=== PATIENT | male | born 1955 | race Caucasian/White ===

== ENCOUNTER 2016-05-14 19:20 | Emergency (ER) | payer MEDICAID ==
[~2016-05-14] VITALS: Ht 185.4 cm; Wt 77.0 kg
[~2016-05-14 19:20] MED LIST: CEPH-376 PO; CREAM FOR RASH; CYCL-259 PO; DIPH25CA61 PO; IBUP-1222 PO; METO25TA35 PO; NAPR500T3 PO; OXYC1TAB9 PO; OXYC5CAP4 PO; SENN1TAB5 PO
[2016-05-14 19:30] VITALS: BP 109/70
[2016-05-14] MEDS ORDERED: DEXAMETHASONE 4 MG TABLET PO ONE (21:00)
[2016-05-14] MEDS ORDERED: KETOROLAC 30 MG/1 ML IM ONE (21:00)
[2016-05-14] MEDS ORDERED: DEXAMETHASONE 4 MG TABLET ONE (21:01)
[2016-05-14] MEDS ORDERED: KETOROLAC 30 MG/1 ML ONE (21:01)
== END 2016-05-14 22:13 | disposition home or self-care (01) ==
LOC: ED 22:00
DX: J44.0 Chronic obstructive pulmonary disease with (acute) lower respiratory infection (principal); J20.8 Acute bronchitis due to other specified organisms; J02.8 Acute pharyngitis due to other specified organisms; F41.1 Generalized anxiety disorder; F17.200 Nicotine dependence, unspecified, uncomplicated
CPT/HCPCS: 71020; 93005; 96372; 99284; J1885

== ENCOUNTER 2016-07-13 23:57 | Emergency (ER) | payer MEDICAID ==
[~2016-07-13] VITALS: Ht 185.4 cm; Wt 71.0 kg
[2016-07-14] MEDS ORDERED: LORazepam 1MG TABLET PO ONE (00:30)
[2016-07-14 01:05] LABS: BLOOD UREA NITROGEN 14 mg/dL (7-18)
[2016-07-14 01:07] LABS: ACETAMINOPHEN < 2 mcg/mL (10-30)
[2016-07-14 03:34] VITALS: BP 119/66
[2016-07-14 04:02] LABS: DAU SCREEN DISCLAIMER
== END 2016-07-14 05:43 | disposition home or self-care (01) ==
LOC: ED 23:59
DX: F32.9 Major depressive disorder, single episode, unspecified (principal); F19.959 Other psychoactive substance use, unspecified with psychoactive substance-induced psychotic disorder, unspecified; F10.229 Alcohol dependence with intoxication, unspecified; F22 Delusional disorders; R45.851 Suicidal ideations
CPT/HCPCS: 36415; 80048; 80307; 80329; 82040; 85025; 99284; G0480

== ENCOUNTER 2016-08-09 11:47 | Observation (INO) | payer MEDICAID ==
[~2016-08-09] VITALS: Ht 185.4 cm; Wt 73.8 kg
[2016-08-09 13:43] LABS: BLOOD UREA NITROGEN 9 mg/dL (7-18)
[2016-08-09 13:47] LABS: ASPARTATE AMINO TRANSFERASE 89 U/L (15-37)
[2016-08-09 13:50] LABS: ACETAMINOPHEN < 2 mcg/mL (10-30)
[2016-08-09] MEDS ORDERED: BISACODYL 10 MG SUPP PR PRN (15:00)
[2016-08-09] MEDS ORDERED: ACETAMINOPHEN 325 MG TABLET PO PRN (15:00)
[2016-08-09] MEDS ORDERED: POLYETHYLENE GLYCOL 17 GM PACKET PO PRN (15:00)
[2016-08-09] MEDS ORDERED: ONDANSETRON ODT 4 MG PO PRN (15:00)
[2016-08-09] MEDS ORDERED: DOCUSATE 100 MG CAPSULE PO PRN (15:00)
[2016-08-09 15:26] LABS: DAU SCREEN DISCLAIMER
[2016-08-09] MEDS: NICOTINE 14MG/24 HR PATCH.TD24 TD SCH (16:30)
[2016-08-09] MEDS: FOLIC ACID 1 MG TABLET PO SCH (16:34)
[2016-08-09] MEDS: LORazepam 1MG TABLET PO PRN (16:34)
[2016-08-09 16:44] VITALS: BP 127/77
[2016-08-09] MEDS ORDERED: PERMETHRIN CRM 5%, 60GM TP ONE (18:00)
[2016-08-09] MEDS: MULTIVITAMIN 1 TABLET PO SCH (18:21)
[2016-08-09] MEDS: THIAMINE 100MG TABLET PO SCH (18:21)
[2016-08-10] MEDS: TAMSULOSIN 0.4 MG CAP.ER.24H PO SCH (08:16)
[2016-08-10] MEDS: MULTIVITAMIN 1 TABLET PO SCH (08:16)
[2016-08-10] MEDS: FOLIC ACID 1 MG TABLET PO SCH (08:16)
[2016-08-10] MEDS: THIAMINE 100MG TABLET PO SCH (08:16)
[2016-08-10 08:33] VITALS: BP 113/75
[2016-08-10] MEDS: NICOTINE 14MG/24 HR PATCH.TD24 TD SCH (15:00)
[2016-08-10] MEDS: LORazepam 1MG TABLET PO PRN (15:19)
[2016-08-10 21:03] VITALS: BP 110/73
[2016-08-11 08:00] VITALS: BP 117/76
[2016-08-11] MEDS: THIAMINE 100MG TABLET PO SCH (09:01)
[2016-08-11] MEDS: FOLIC ACID 1 MG TABLET PO SCH (09:01)
[2016-08-11] MEDS: MULTIVITAMIN 1 TABLET PO SCH (09:01)
[2016-08-11] MEDS: TAMSULOSIN 0.4 MG CAP.ER.24H PO SCH (09:01)
[2016-08-11] MEDS: NICOTINE 14MG/24 HR PATCH.TD24 TD SCH (15:00)
[2016-08-11 19:57] VITALS: BP 119/75
[2016-08-11] MEDS: LORazepam 1MG TABLET PO PRN (20:59)
[2016-08-12 07:35] VITALS: BP 117/77
[2016-08-12] MEDS: TAMSULOSIN 0.4 MG CAP.ER.24H PO SCH (08:26)
[2016-08-12] MEDS: MULTIVITAMIN 1 TABLET PO SCH (08:26)
[2016-08-12] MEDS: FOLIC ACID 1 MG TABLET PO SCH (08:26)
[2016-08-12] MEDS: THIAMINE 100MG TABLET PO SCH (08:26)
[2016-08-12] MEDS: NICOTINE 14MG/24 HR PATCH.TD24 TD SCH (15:00)
[2016-08-12 19:25] VITALS: BP 137/70
[2016-08-13] MEDS: FOLIC ACID 1 MG TABLET PO SCH (07:12)
[2016-08-13] MEDS: TAMSULOSIN 0.4 MG CAP.ER.24H PO SCH (07:12)
[2016-08-13] MEDS: MULTIVITAMIN 1 TABLET PO SCH (07:12)
[2016-08-13] MEDS: THIAMINE 100MG TABLET PO SCH (07:12)
[2016-08-13 08:00] VITALS: BP 101/68
[2016-08-13] MEDS: NICOTINE 14MG/24 HR PATCH.TD24 TD SCH (15:00)
[2016-08-13 19:18] VITALS: BP 116/68
[2016-08-13] MEDS: LORazepam 1MG TABLET PO PRN (20:59)
== END 2016-08-14 01:17 ==
LOC: ED 13:53 → EDIP 13:54 → ED 14:16 → 3E 15:33
DX: R45.851 Suicidal ideations (principal); E87.1 Hypo-osmolality and hyponatremia; B86 Scabies; F41.1 Generalized anxiety disorder; F33.9 Major depressive disorder, recurrent, unspecified; J44.9 Chronic obstructive pulmonary disease, unspecified; F17.210 Nicotine dependence, cigarettes, uncomplicated; Z59.0 Homelessness; Z80.1 Family history of malignant neoplasm of trachea, bronchus and lung; Z80.3 Family history of malignant neoplasm of breast; Z80.8 Family history of malignant neoplasm of other organs or systems; Z80.42 Family history of malignant neoplasm of prostate
CPT/HCPCS: 36415; 80053; 80307; 80329; 81003; 85025; 93005; 99285; G0378; Q0177; G0480

== ENCOUNTER 2016-09-08 01:22 | Emergency (ER) | payer MEDICAID ==
[~2016-09-08] VITALS: Ht 185.4 cm; Wt 72.0 kg
[2016-09-08 01:25] VITALS: BP 130/79
== END 2016-09-08 02:19 | disposition home or self-care (01) ==
LOC: ED 01:48
DX: H83.2X2 Labyrinthine dysfunction, left ear (principal); J44.9 Chronic obstructive pulmonary disease, unspecified
CPT/HCPCS: 99283

== ENCOUNTER 2017-01-18 19:51 | Observation (INO) | payer MEDICAID ==
[~2017-01-18] VITALS: Ht 185.4 cm; Wt 70.0 kg
[~2017-01-18 19:51] MED LIST changes: -NAPR500T3 PO; +NAPR500T4 PO; +OXYC5CAP2 PO; -OXYC5CAP4 PO; +SENN-52 PO; -SENN1TAB5 PO
[2017-01-18 20:46] LABS: DAU SCREEN DISCLAIMER
[2017-01-18 20:48] LABS: HEMATOCRIT 45.8 % (39.2-51.8); HEMOGLOBIN 15.2 g/dL (13.7-18.0); WHITE BLOOD COUNT 6.8 x10^3/uL (3.4-10)
[2017-01-18 21:01] LABS: ASPARTATE AMINO TRANSFERASE 58 U/L (15-37); BLOOD UREA NITROGEN 7 mg/dL (7-18)
[2017-01-18 21:17] LABS: ACETAMINOPHEN < 2 mcg/mL (10-30)
[2017-01-19] MEDS ORDERED: LORazepam 1MG TABLET ONE (11:19)
[2017-01-19] MEDS ORDERED: LORazepam 1MG TABLET PO ONE (11:30)
[2017-01-19 12:00] VITALS: BP 144/63
[2017-01-19] MEDS ORDERED: LORazepam 1MG TABLET PO PRN (13:00)
[2017-01-19] MEDS ORDERED: LORazepam 2 MG/ML, 1ML IM PRN ×2 (13:00)
[2017-01-19] MEDS ORDERED: FOLIC ACID 1 MG TABLET PO SCH (13:00)
[2017-01-19] MEDS ORDERED: ONDANSETRON ODT 4 MG PO PRN (13:00)
[2017-01-19] MEDS ORDERED: MULTIVITAMIN 1 TABLET PO SCH (13:00)
[2017-01-19] MEDS ORDERED: ACETAMINOPHEN 325 MG TABLET PO PRN (13:00)
[2017-01-19] MEDS ORDERED: THIAMINE 100 MG/ML, 2ML IM ONE (14:30)
[2017-01-19] MEDS ORDERED: NICOTINE 21 MG/24 HR PATCH.TD24 TD SCH (15:00)
[2017-01-19] MEDS ORDERED: HYDROCORTISONE CRM 1%, 30GM TP PRN (16:00)
[2017-01-19] MEDS ORDERED: OLANZAPINE 2.5 MG TABLET PO SCH (21:00)
[2017-01-20] MEDS ORDERED: THIAMINE 100MG TABLET PO SCH (09:00)
== END 2017-01-19 19:20 ==
LOC: ED 22:03 → EDIP 01-19 11:17 → 3E 01-19 13:39
PROVIDERS: ADMIT Internal Medicine; ATTEND Internal Medicine
DX: R45.851 Suicidal ideations (principal); F32.9 Major depressive disorder, single episode, unspecified; F10.120 Alcohol abuse with intoxication, uncomplicated; F17.210 Nicotine dependence, cigarettes, uncomplicated; Z91.5 Personal history of self-harm; Z59.0 Homelessness
CPT/HCPCS: 36415; 80053; 80307; 80329; 85025; 96372; 99285; G0378; J3411; G0479; G0480

== ENCOUNTER 2017-01-19 21:36 | Emergency (ER) | payer MEDICAID ==
[2017-01-20 00:11] VITALS: BP 118/67
== END 2017-01-20 00:35 ==
LOC: ED 21:58
DX: R21 Rash and other nonspecific skin eruption (principal)
CPT/HCPCS: 99283; 99285

== ENCOUNTER 2017-12-06 09:24 | Emergency (ER) | payer MEDICAID ==
[~2017-12-06] VITALS: Ht 182.9 cm; Wt 91.0 kg
[~2017-12-06 09:24] MED LIST changes: +LEVO50TA PO; +NAPR-685 PO; -NAPR500T4 PO; +OXYC-432 PO; -OXYC1TAB9 PO
[2017-12-06 10:10] LABS: BASOPHILS % (AUTO) 1 % (0-1); EOSINOPHILS # (AUTO) 0.51 x10^3/uL (0-0.4); EOSINOPHILS % (AUTO) 8 % (1-7); LYMPHOCYTES # (AUTO) 2.48 x10^3/uL (1-3.4); LYMPHOCYTES % (AUTO) 37 % (22-44); MD NO; MEAN CORPUSCULAR HGB CONC 33.3 g/dL (33.2-36.2); MEAN PLATELET VOLUME 7.3 fL (7.4-10.4); MONOCYTES # (AUTO) 0.62 x10^3/uL (0.2-0.8); MONOCYTES % (AUTO) 9 % (2-9); NEUTROPHILS # (AUTO) 2.95 x10^3/uL (1.8-6.8); NEUTROPHILS % (AUTO) 44 % (42-75); PLATELET COUNT 340 x10^3/uL (130-400); RED BLOOD COUNT 5.19 x10^6/uL (4.38-5.82); RED CELL DISTRIBUTION WIDTH 14.6 % (9.4-14.8)
[2017-12-06 10:20] LABS: ALANINE AMINOTRANSFERASE 21 U/L (12-78); ANION GAP 8 mmol/L (5-15); CALCIUM 8.8 mg/dL (8.5-10.1); CHLORIDE 107 mmol/L (98-107); CREATININE 0.98 mg/dL (0.7-1.3); SALICYLATE LEVEL 4.4 mg/dL (2.8-20.0)
[2017-12-06 10:23] LABS: ALKALINE PHOSPHATASE 112 U/L (45-117); BILIRUBIN,TOTAL 0.2 mg/dL (0.2-1.0); TOTAL PROTEIN 8.3 g/dL (6.4-8.2)
[2017-12-06 10:25] LABS: ACETAMINOPHEN < 2 mcg/mL (10-30)
[2017-12-06 12:54] LABS: AMPHETAMINE SCREEN, URINE Negative (Negative); BARBITURATE SCREEN, URINE Negative (Negative); BENZODIAZEPINE SCREEN, URINE Negative (Negative); CANNABINOID SCREEN, URINE Negative (Negative); COCAINE SCREEN, URINE Negative (Negative); METHADONE SCREEN, URINE Negative (Negative); OPIATE SCREEN, URINE Negative (Negative)
[2017-12-06 16:36] VITALS: BP 118/79
== END 2017-12-06 16:37 | disposition home or self-care (01) ==
LOC: ED 10:39
DX: F32.9 Major depressive disorder, single episode, unspecified (principal); F10.220 Alcohol dependence with intoxication, uncomplicated; J44.9 Chronic obstructive pulmonary disease, unspecified
CPT/HCPCS: 36415; 80053; 80307; 80329; 85025; 99284; G0480

== ENCOUNTER 2017-12-08 21:42 | Emergency (ER) | payer MEDICAID ==
[~2017-12-08] VITALS: Ht 185.4 cm; Wt 72.9 kg
[2017-12-08 21:44] VITALS: BP 133/80
[2017-12-08] MEDS ORDERED: LORazepam 1MG TABLET PO ONE (22:30)
[2017-12-08] MEDS ORDERED: LORazepam 1MG TABLET ONE (22:35)
== END 2017-12-08 23:18 | disposition home or self-care (01) ==
LOC: ED 23:09
DX: F10.239 Alcohol dependence with withdrawal, unspecified (principal); F17.200 Nicotine dependence, unspecified, uncomplicated
CPT/HCPCS: 99283

== ENCOUNTER 2017-12-24 01:11 | Emergency (ER) | payer MEDICAID ==
[~2017-12-24] VITALS: Ht 185.4 cm; Wt 72.0 kg
[2017-12-24 01:29] VITALS: BP 129/84
[2017-12-24 02:18] LABS: AMPHETAMINE SCREEN, URINE Negative (Negative); BARBITURATE SCREEN, URINE Negative (Negative); BENZODIAZEPINE SCREEN, URINE Negative (Negative); CANNABINOID SCREEN, URINE Negative (Negative); COCAINE SCREEN, URINE Negative (Negative); METHADONE SCREEN, URINE Negative (Negative); OPIATE SCREEN, URINE Negative (Negative)
[2017-12-24 02:20] LABS: ALANINE AMINOTRANSFERASE 61 U/L (12-78); ALBUMIN 3.7 g/dL (3.4-5.0); ANION GAP 10 mmol/L (5-15); CALCIUM 8.8 mg/dL (8.5-10.1); CHLORIDE 102 mmol/L (98-107); CREATININE 0.72 mg/dL (0.7-1.3)
[2017-12-24 02:21] LABS: MEAN CORPUSCULAR HEMOGLOBIN 30.2 pg (27.5-34.5); MEAN CORPUSCULAR HGB CONC 33.5 g/dL (33.2-36.2); MEAN CORPUSCULAR VOLUME 90.1 fL (81-97); MEAN PLATELET VOLUME 7.6 fL (7.4-10.4); PLATELET COUNT 275 x10^3/uL (130-400); RED BLOOD COUNT 4.98 x10^6/uL (4.38-5.82)
[2017-12-24 02:22] LABS: ALKALINE PHOSPHATASE 116 U/L (45-117); BILIRUBIN,TOTAL 0.4 mg/dL (0.2-1.0); TOTAL PROTEIN 7.8 g/dL (6.4-8.2)
[2017-12-24 02:23] LABS: ACETAMINOPHEN < 2 mcg/mL (10-30)
[2017-12-24 02:35] LABS: MD YES
[2017-12-24 02:41] LABS: BANDS%(MANUAL) 1 % (0-7); BASOS% (MANUAL) 1 % (0-1); EOS#(MANUAL) 1.07 x10^3/uL (0.0-0.4); EOS% (MANUAL) 11 % (1-7); LYMPH#(MANUAL) 0.68 x10^3/uL (1-3.4); LYMPHS% (MANUAL) 7 % (22-44); MONOS#(MANUAL) 1.16 x10^3/uL (0.3-2.7); MONOS% (MANUAL) 12 % (2-9); REACTIVE LYMPHS # (MANUAL) 0.49 x10^3/uL (0-0); REACTIVE LYMPHS % (MANUAL) 5 % (0-0); SEG#(MANUAL) 6.11 x10^3/uL (1.8-6.8); SEGS% (MANUAL) 63 % (42-75)
[2017-12-24 02:42] LABS: ANISOCYTOSIS 1+
[2017-12-24 02:43] LABS: <PLATELET ESTIMATE> ADEQUATE; OVALOCYTES 1+; TARGET CELLS 1+
[2017-12-24 02:44] LABS: <PLT MORPHOLOGY> NORMAL PLT MORPH
[2017-12-24] MEDS ORDERED: ATOR40TA78 PO (10:28)
[2017-12-24] MEDS ORDERED: LOVA10TA PO (10:28)
[2017-12-24] MEDS ORDERED: RANI150T4 PO (10:28)
[2017-12-24] MEDS ORDERED: AMLO5TAB4 PO (10:28)
[2017-12-24] MEDS ORDERED: CARV3.1212 PO (10:28)
[2017-12-24] MEDS ORDERED: LEVO75TA5 PO (10:28)
== END 2017-12-24 09:51 | disposition home or self-care (01) ==
LOC: ED 01:52
DX: F32.9 Major depressive disorder, single episode, unspecified (principal); F10.20 Alcohol dependence, uncomplicated; F41.1 Generalized anxiety disorder; J44.9 Chronic obstructive pulmonary disease, unspecified
CPT/HCPCS: 36415; 80053; 80307; 80329; 85025; 99284; G0480

== ENCOUNTER 2017-12-27 23:01 | Emergency (ER) | payer MEDICAID ==
[~2017-12-27] VITALS: Ht 185.4 cm; Wt 72.6 kg
[~2017-12-27 23:01] MED LIST changes: +AMLO5TAB4 PO; +ATOR40TA78 PO; +CARV3.1212 PO; +LEVO75TA5 PO; +LOVA10TA PO; +RANI150T4 PO
[2017-12-27 23:05] VITALS: BP 133/76
[2017-12-27] MEDS ORDERED: MAALOX/HYOSCYAMINE/LIDOCAINE 45 ML BTL ONE (23:54)
[2017-12-27] MEDS ORDERED: ONDANSETRON ODT 4 MG ONE (23:54)
[2017-12-27 23:55] LABS: MEAN CORPUSCULAR HEMOGLOBIN 30.1 pg (27.5-34.5); MEAN CORPUSCULAR HGB CONC 33.4 g/dL (33.2-36.2); MEAN CORPUSCULAR VOLUME 90.1 fL (81-97); MEAN PLATELET VOLUME 7.9 fL (7.4-10.4); PLATELET COUNT 221 x10^3/uL (130-400); RED BLOOD COUNT 4.71 x10^6/uL (4.38-5.82); RED CELL DISTRIBUTION WIDTH 16.1 % (9.4-14.8)
[2017-12-28] MEDS ORDERED: ONDANSETRON ODT 4 MG PO ONE
[2017-12-28] MEDS ORDERED: MAALOX/HYOSCYAMINE/LIDOCAINE 45 ML BTL PO ONE
[2017-12-28 00:03] LABS: ALANINE AMINOTRANSFERASE 79 U/L (12-78); ALBUMIN 3.6 g/dL (3.4-5.0); ANION GAP 7 mmol/L (5-15); CALCIUM 8.4 mg/dL (8.5-10.1); CHLORIDE 103 mmol/L (98-107); CREATININE 0.74 mg/dL (0.7-1.3)
[2017-12-28 00:06] LABS: ALKALINE PHOSPHATASE 133 U/L (45-117); BILIRUBIN,TOTAL 0.5 mg/dL (0.2-1.0); TOTAL PROTEIN 7.9 g/dL (6.4-8.2)
[2017-12-28 00:08] LABS: MD YES
[2017-12-28 00:11] LABS: ANISOCYTOSIS 1+; EOS#(MANUAL) 0.32 x10^3/uL (0.0-0.4); EOS% (MANUAL) 3 % (1-7); LYMPH#(MANUAL) 2.52 x10^3/uL (1-3.4); LYMPHS% (MANUAL) 24 % (22-44); MONOS#(MANUAL) 1.16 x10^3/uL (0.3-2.7); MONOS% (MANUAL) 11 % (2-9); SEG#(MANUAL) 6.51 x10^3/uL (1.8-6.8); SEGS% (MANUAL) 62 % (42-75)
[2017-12-28 00:12] LABS: <PLATELET ESTIMATE> ADEQUATE; <PLT MORPHOLOGY> NORMAL PLT MORPH; OVALOCYTES 1+
== END 2017-12-28 00:56 | disposition home or self-care (01) ==
LOC: ED 23:52
DX: K29.20 Alcoholic gastritis without bleeding (principal); F10.10 Alcohol abuse, uncomplicated; J44.9 Chronic obstructive pulmonary disease, unspecified; I10 Essential (primary) hypertension
CPT/HCPCS: 36415; 71045; 80053; 82140; 83690; 85025; 93005; 99285

== ENCOUNTER 2018-06-22 19:30 | Emergency (ER) | payer MEDICAID, OTHER ==
[~2018-06-22] VITALS: Ht 185.4 cm; Wt 73.7 kg
[2018-06-22 19:45] VITALS: BP 97/58
--- NOTE | 2018-06-22 19:49 | NUR ---
Pt ambulated to room with EDT.
--- NOTE | 2018-06-22 19:54 | NUR ---
XR at bedside.
--- NOTE | 2018-06-22 20:03 | NUR ---
BLUEPRINTING MACHINE OPERATOR, Delfina, at bedside to evaluate pt. Pt with bruising to right great toe/foot. Pt states that a large cutting board fell off a counter at appx 1500 today.
[2018-06-22] MEDS ORDERED: LEVO50TA5 PO (20:05)
== END 2018-06-22 21:29 | disposition home or self-care (01) ==
LOC: ED 21:23
DX: S92.314A Nondisplaced fracture of first metatarsal bone, right foot, initial encounter for closed fracture (principal); J44.9 Chronic obstructive pulmonary disease, unspecified; F41.1 Generalized anxiety disorder; F32.9 Major depressive disorder, single episode, unspecified; Z72.9 Problem related to lifestyle, unspecified; W22.8XXA Striking against or struck by other objects, initial encounter; Y93.89 Activity, other specified; Y92.009 Unspecified place in unspecified non-institutional (private) residence as the place of occurrence of the external cause; Y99.8 Other external cause status
CPT/HCPCS: 99284

== ENCOUNTER 2019-04-03 00:46 | Emergency (ER) | payer SELFPAY ==
[~2019-04-03] VITALS: Ht 185.4 cm; Wt 72.8 kg
[~2019-04-03 00:46] MED LIST changes: +LEVO50TA5 PO
--- NOTE | 2019-04-03 01:05 | NUR ---
THIS IS A 63 YO MALE COMING IN FOR FEELING DEPRESSED X 10 DAYS. REPORTS HX OF SI IN THE PAST BUT DENIES HX OF SA. PT. 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 PATIENT ALSO C/O INTERMITTENT PAIN IN BILATERAL THIGHS AND LEGS WITH CRAMPING FOR THE PAST 2 WEEKS. STATES HE HAS HAD DECREAED APPETITE. PATIENT STATES "THIS PAIN HAS BEEN CONTRIBUTING TO THE DEPRESSED FEELINGS". VSS, RHONDA AT THIS TIME, CALL LIGHT IN REACH. PA TO ROOM
[2019-04-03 01:21] LABS: BASOPHILS # (AUTO) 0.04 x10^3/uL (0-0.1); BASOPHILS % (AUTO) 0 % (0-1); EOSINOPHILS # (AUTO) 0.57 x10^3/uL (0-0.4); EOSINOPHILS % (AUTO) 6 % (1-7); LYMPHOCYTES # (AUTO) 1.98 x10^3/uL (1-3.4); LYMPHOCYTES % (AUTO) 19 % (22-44); MD NO; MEAN CORPUSCULAR HEMOGLOBIN 29.7 pg (27.5-34.5); MEAN CORPUSCULAR HGB CONC 33.3 g/dL (33.2-36.2); MEAN CORPUSCULAR VOLUME 89.3 fL (81-97); MEAN PLATELET VOLUME 7.2 fL (7.4-10.4); MONOCYTES # (AUTO) 1.05 x10^3/uL (0.2-0.8); MONOCYTES % (AUTO) 10 % (2-9); NEUTROPHILS # (AUTO) 6.74 x10^3/uL (1.8-6.8); NEUTROPHILS % (AUTO) 65 % (42-75); PLATELET COUNT 250 x10^3/uL (130-400); RED BLOOD COUNT 4.71 x10^6/uL (4.38-5.82); RED CELL DISTRIBUTION WIDTH 14.8 % (9.4-14.8)
[2019-04-03 01:33] LABS: ALANINE AMINOTRANSFERASE 22 U/L (12-78); ALBUMIN 3.5 g/dL (3.4-5.0); ANION GAP 6 mmol/L (5-15); CALCIUM 8.3 mg/dL (8.5-10.1); CHLORIDE 105 mmol/L (98-107); SALICYLATE LEVEL 2.5 mg/dL (2.8-20.0)
[2019-04-03 01:35] LABS: ALKALINE PHOSPHATASE 128 U/L (45-117); BILIRUBIN,TOTAL 0.3 mg/dL (0.2-1.0); TOTAL PROTEIN 7.5 g/dL (6.4-8.2)
[2019-04-03] MEDS ORDERED: HYDR25CA PO (01:43)
[2019-04-03] MEDS ORDERED: IBUP-1222 PO (01:44)
--- NOTE | 2019-04-03 01:47 | NUR ---
PATIENT AMBULATORY WITH STEADY GAIT TO RESTROOM
--- NOTE | 2019-04-03 02:00 | NUR ---
UA COLLECTED AND SENT
[2019-04-03 02:34] LABS: AMPHETAMINE SCREEN, URINE Negative (Negative); BARBITURATE SCREEN, URINE Negative (Negative); BENZODIAZEPINE SCREEN, URINE Negative (Negative); CANNABINOID SCREEN, URINE Positive (Negative); COCAINE SCREEN, URINE Negative (Negative); METHADONE SCREEN, URINE Negative (Negative); OPIATE SCREEN, URINE Negative (Negative)
[2019-04-03] MEDS ORDERED: LORazepam 0.5MG TABLET ONE (03:15)
--- NOTE | 2019-04-03 03:17 | NUR ---
PATIENT MEDICATED PER EMAR, TOLERATED WELL.
--- NOTE | 2019-04-03 03:20 | NUR ---
PATIENT VOMITING PRIOR TO DISCHARGE. ALETA VALLADARES NOTIFIED. ALETA VALLADARES ORDERED IM NAUSEA MEDICATION. PATIENT REFUSED NAUSEA MEDICATION. STATES "I'LL JUST GET OUT OF HERE". PATIENT GIVEN DISCHARGE PAPERWORK AND VERBALIZED UNDERSTANDING. PATIENT GIVEN TAXI VOUCHER TO HOUSE.
[2019-04-03] MEDS ORDERED: PROMETHAZINE 25 MG/ML, 1ML ONE (03:26)
[2019-04-03] MEDS ORDERED: PROMETHAZINE 25 MG/ML, 1ML IM ONE (03:30)
[2019-04-03] MEDS ORDERED: LORazepam 0.5MG TABLET PO ONE (03:30)
[2019-04-03 03:33] VITALS: BP 122/74
== END 2019-04-03 03:52 | disposition home or self-care (01) ==
LOC: ED 03:15
DX: F32.9 Major depressive disorder, single episode, unspecified (principal); F10.120 Alcohol abuse with intoxication, uncomplicated; F17.210 Nicotine dependence, cigarettes, uncomplicated
CPT/HCPCS: 36415; 80053; 80307; 85025; 99283